=== PATIENT | male | born 1965 | race Two or more races ===

== ENCOUNTER 2018-10-06 07:41 | Inpatient (IN) | payer OTHER ==
[~2018-10-06 07:41] MED LIST: CEFAZOLIN 1 GM INJ; DEXAMETHASONE 4 MG/ML 5 ML INJ; SUCCINYLCHOLINE CHLORIDE 100 MG/5 ML SYG IV
[2018-10-06] MEDS ORDERED: BUPIVACAINE 0.25% (MPF) 30 ML INJ (09:21)
[2018-10-06] MEDS ORDERED: POLYMYXIN/BACITRACIN 1L IRRIG (09:21)
[2018-10-06] MEDS ORDERED: HYDROmorphONE 1 MG/5 ML IV SYRINGE IV ×3 (10:00)
[2018-10-06] MEDS ORDERED: ONDANSETRON 4 MG INJ IV ×2 (10:00→15:00)
[2018-10-06] MEDS ORDERED: MEPERIDINE 25 MG INJ IV (10:00)
[2018-10-06] MEDS ORDERED: FENTAnyl 50 MCG/ML VIAL IV ×2 (10:00)
[2018-10-06] MEDS ORDERED: KETOROLAC 30 MG INJ IV (10:00)
[2018-10-06] MEDS ORDERED: LEVALBUTEROL (NEB) 1.25 MG/0.5 ML AMP HHN (10:00)
[2018-10-06] MEDS ORDERED: DIPHENHYDRAMINE 50 MG INJ IV ×2 (10:00→15:00)
[2018-10-06] MEDS ORDERED: FENTAnyl 50 MCG/ML VIAL ×2 (10:23→12:54)
[2018-10-06] MEDS ORDERED: MIDAZOLAM 1 MG/ML 2 ML INJ (10:24)
[2018-10-06] MEDS ORDERED: ONDANSETRON 4 MG INJ (10:27)
[2018-10-06] MEDS ORDERED: METOCLOPRAMIDE 10 MG INJ (10:29)
[2018-10-06] MEDS ORDERED: ROPIVACAINE 0.5 % 30 ML VIAL (10:31)
[2018-10-06] MEDS: SOD CHLORIDE 0.9% 1,000 ML IV (12:00)
[2018-10-06] MEDS ORDERED: PROPOFOL 20 ML (12:48)
[2018-10-06] MEDS ORDERED: LIDOCAINE 2% (SDV) 5 ML INJ (12:48)
[2018-10-06] MEDS ORDERED: morphine SULFATE/PF (10 MG/10 ML) INJ (12:49)
[2018-10-06] MEDS ORDERED: ROCURONIUM 50 MG INJ ×2 (12:49)
[2018-10-06] MEDS ORDERED: hydrALAzine 20 MG INJ (13:09)
[2018-10-06] MEDS ORDERED: EPHEDrine SULFATE 50 MG/5 ML SYG (14:46)
[2018-10-06] MEDS ORDERED: ZOLPIDEM 5 MG TAB PO (15:00)
[2018-10-06] MEDS ORDERED: NALOXONE (0.4 MG/ML) INJ IV (15:00)
[2018-10-06 15:11] LABS: ADD MAN DIFF? NO
[2018-10-06 15:13] LABS: WHITE BLOOD COUNT 17.5 10^3/ul (4.8-10.8)
[2018-10-06 15:13] LABS: BASOPHIL # 0.1 10^3/ul (0.0-0.1); BASOPHILS % 0.3 % (0.0-2.0); EOSINOPHILS % 0.2 % (0.0-7.0); HEMATOCRIT 36.2 % (42.0-52.0); HEMOGLOBIN 12.3 g/dl (14.0-18.0); LYMPHOCYTES # 2.4 10^3/ul (0.8-2.9); LYMPHOCYTES % 13.9 % (15.0-51.0); MEAN CORPUSCULAR HEMOGLOBIN 32.8 pg (29.0-33.0); MEAN CORPUSCULAR VOLUME 96.5 fl (82.0-101.0); MEAN PLATELET VOLUME 9.8 fl (7.4-10.4); MONOCYTE # 0.7 10^3/ul (0.3-0.9); MONOCYTES % 4.2 % (0.0-11.0); NEUTROPHIL # 14.2 10^3/ul (1.6-7.5); NEUTROPHILS % 81.1 % (39.0-77.0); PLATELET COUNT 334 10^3/UL (140-415); RED BLOOD COUNT 3.75 10^6/ul (4.70-6.10); RED CELL DISTRIBUTION WIDTH 13.4 % (11.5-14.5)
[2018-10-06 15:20] LABS: HOLD TRANSMISSIONS 1
[2018-10-06] MEDS: FENTAnyl 2MCG/ML-ROPIV 0.2% 100 ML BAG EPI ×2 (15:22→22:00)
[2018-10-06] MEDS: LACTATED RINGER'S 1,000 ML IV ×2 (15:23→21:25)
[2018-10-06 15:30] LABS: ALANINE AMINOTRANSFERASE 49 IU/L (13-69); ALBUMIN 3.4 g/dl (3.3-4.9); ALBUMIN/GLOBULIN RATIO 1.47; ALKALINE PHOSPHATASE 84 IU/L (42-121); ANION GAP 8 (5-13); ASPARTATE AMINO TRANSFERASE 25 IU/L (15-46); BILIRUBIN,INDIRECT 0.3 mg/dl (0-1.1); BILIRUBIN,TOTAL 0.3 mg/dl (0.2-1.3); BLOOD UREA NITROGEN 12 mg/dl (7-20); CARBON DIOXIDE 23 mmol/L (21-31); CHLORIDE 107 mmol/L (97-110); CREATININE 0.67 mg/dl (0.61-1.24); Estimated GFR > 60 mL/min (>60); GLUCOSE 141 mg/dl (70-220); POTASSIUM 3.8 mmol/L (3.5-5.1); SODIUM 138 mmol/L (135-144); TOTAL PROTEIN 5.7 g/dl (6.1-8.1)
[2018-10-06 15:36] LABS: CALCIUM 8.3 mg/dl (8.4-10.2)
[2018-10-06] MEDS: AMPICILLIN/SULB 3 GM/NS (PMX) 100 ML IVPB ×2 (15:46→21:25)
[2018-10-07] MEDS: AMPICILLIN/SULB 3 GM/NS (PMX) 100 ML IVPB ×2 (03:12→09:13)
[2018-10-07 05:24] LABS: ADD MAN DIFF? NO
[2018-10-07] MEDS: FENTAnyl 2MCG/ML-ROPIV 0.2% 100 ML BAG EPI ×3 (05:46→21:32)
[2018-10-07 06:14] LABS: ALANINE AMINOTRANSFERASE 39 IU/L (13-69); ALBUMIN 3.3 g/dl (3.3-4.9); ALKALINE PHOSPHATASE 64 IU/L (42-121); ANION GAP 9 (5-13); ASPARTATE AMINO TRANSFERASE 36 IU/L (15-46); BILIRUBIN,INDIRECT 0.6 mg/dl (0-1.1); BILIRUBIN,TOTAL 0.6 mg/dl (0.2-1.3); BLOOD UREA NITROGEN 10 mg/dl (7-20); CALCIUM 8.4 mg/dl (8.4-10.2); CARBON DIOXIDE 25 mmol/L (21-31); CHLORIDE 105 mmol/L (97-110); CREATININE 0.65 mg/dl (0.61-1.24); Estimated GFR > 60 mL/min (>60); GLUCOSE 99 mg/dl (70-220); SODIUM 139 mmol/L (135-144); TOTAL PROTEIN 5.5 g/dl (6.1-8.1)
[2018-10-07 07:02] LABS: WHITE BLOOD COUNT 10.4 10^3/ul (4.8-10.8)
[2018-10-07 07:02] LABS: BASOPHILS % 0.1 % (0.0-2.0); HEMATOCRIT 34.4 % (42.0-52.0); HEMOGLOBIN 11.4 g/dl (14.0-18.0); LYMPHOCYTES # 1.8 10^3/ul (0.8-2.9); LYMPHOCYTES % 17.5 % (15.0-51.0); MEAN CORPUSCULAR HEMOGLOBIN 32.7 pg (29.0-33.0); MEAN CORPUSCULAR HGB CONC 33.1 g/dl (32.0-37.0); MEAN CORPUSCULAR VOLUME 98.6 fl (82.0-101.0); MEAN PLATELET VOLUME 9.9 fl (7.4-10.4); MONOCYTE # 1.2 10^3/ul (0.3-0.9); MONOCYTES % 11.4 % (0.0-11.0); NEUTROPHIL # 7.3 10^3/ul (1.6-7.5); NEUTROPHILS % 70.6 % (39.0-77.0); PLATELET COUNT 277 10^3/UL (140-415); RED BLOOD COUNT 3.49 10^6/ul (4.70-6.10)
[2018-10-07] MEDS: LACTATED RINGER'S 1,000 ML IV ×2 (09:10→20:49)
[2018-10-07] MEDS: CELECOXIB 200 MG CAP PO (09:13)
[2018-10-07] MEDS: HYDROmorphONE 0.5 MG/0.5 ML SYG IV (21:33)
[2018-10-08] MEDS: FENTAnyl 2MCG/ML-ROPIV 0.2% 100 ML BAG EPI ×3 (05:23→20:43)
[2018-10-08] MEDS: LACTATED RINGER'S 1,000 ML IV ×3 (06:46→18:00)
[2018-10-08] MEDS: CELECOXIB 200 MG CAP PO (07:42)
[2018-10-08] MEDS: ACETAMINOPHEN 500 MG TAB PO (07:42)
[2018-10-09] MEDS: LACTATED RINGER'S 1,000 ML IV ×3 (04:10→23:40)
[2018-10-09] MEDS: FENTAnyl 2MCG/ML-ROPIV 0.2% 100 ML BAG EPI ×3 (04:17→18:25)
[2018-10-09] MEDS: CELECOXIB 200 MG CAP PO (10:03)
[2018-10-09] MEDS: ACETAMINOPHEN 500 MG TAB PO (15:43)
[2018-10-09] MEDS: HYDROCODONE/APAP (5/325) TAB PO ×2 (17:09→23:38)
[2018-10-09] MEDS: HYDROmorphONE 0.5 MG/0.5 ML SYG IV (21:13)
[2018-10-10] MEDS: FENTAnyl 2MCG/ML-ROPIV 0.2% 100 ML BAG EPI (01:28)
[2018-10-10] MEDS: HYDROCODONE/APAP (5/325) TAB PO ×3 (03:36→20:38)
[2018-10-10 05:18] LABS: ADD MAN DIFF? NO
[2018-10-10 05:31] LABS: BASOPHILS % 0.5 % (0.0-2.0); EOSINOPHILS # 0.2 10^3/ul (0.0-0.5); EOSINOPHILS % 4.3 % (0.0-7.0); HEMATOCRIT 32.8 % (42.0-52.0); LYMPHOCYTES # 1.5 10^3/ul (0.8-2.9); MEAN CORPUSCULAR HEMOGLOBIN 32.8 pg (29.0-33.0); MEAN CORPUSCULAR HGB CONC 33.5 g/dl (32.0-37.0); MEAN CORPUSCULAR VOLUME 97.9 fl (82.0-101.0); MEAN PLATELET VOLUME 10.7 fl (7.4-10.4); MONOCYTE # 0.7 10^3/ul (0.3-0.9); MONOCYTES % 11.8 % (0.0-11.0); NEUTROPHIL # 3.2 10^3/ul (1.6-7.5); NEUTROPHILS % 57.2 % (39.0-77.0); PLATELET COUNT 270 10^3/UL (140-415); RED BLOOD COUNT 3.35 10^6/ul (4.70-6.10); RED CELL DISTRIBUTION WIDTH 13.2 % (11.5-14.5)
[2018-10-10 05:31] LABS: WHITE BLOOD COUNT 5.6 10^3/ul (4.8-10.8)
[2018-10-10] MEDS: HYDROmorphONE 0.5 MG/0.5 ML SYG IV ×5 (07:39→23:34)
[2018-10-10] MEDS: LACTATED RINGER'S 1,000 ML IV (10:11)
[2018-10-11] MEDS: HYDROCODONE/APAP (5/325) TAB PO (01:37)
[2018-10-11] MEDS: HYDROCODONE/APAP (10/325) TAB PO ×3 (08:17→18:24)
[2018-10-11] MEDS: HYDROmorphONE 0.5 MG/0.5 ML SYG IV ×2 (11:21→20:20)
[2018-10-12] MEDS: HYDROmorphONE 0.5 MG/0.5 ML SYG IV (03:39)
[2018-10-12 05:27] LABS: ADD MAN DIFF? NO
[2018-10-12 05:37] LABS: WHITE BLOOD COUNT 5.7 10^3/ul (4.8-10.8)
[2018-10-12 05:37] LABS: BASOPHILS % 0.5 % (0.0-2.0); EOSINOPHILS # 0.3 10^3/ul (0.0-0.5); EOSINOPHILS % 4.4 % (0.0-7.0); HEMOGLOBIN 12.7 g/dl (14.0-18.0); LYMPHOCYTES # 1.3 10^3/ul (0.8-2.9); LYMPHOCYTES % 22.5 % (15.0-51.0); MEAN CORPUSCULAR HEMOGLOBIN 32.2 pg (29.0-33.0); MEAN CORPUSCULAR HGB CONC 33.4 g/dl (32.0-37.0); MEAN CORPUSCULAR VOLUME 96.2 fl (82.0-101.0); MEAN PLATELET VOLUME 10.4 fl (7.4-10.4); MONOCYTE # 0.9 10^3/ul (0.3-0.9); MONOCYTES % 15.9 % (0.0-11.0); NEUTROPHIL # 3.2 10^3/ul (1.6-7.5); NEUTROPHILS % 56.5 % (39.0-77.0); PLATELET COUNT 391 10^3/UL (140-415); RED BLOOD COUNT 3.95 10^6/ul (4.70-6.10); RED CELL DISTRIBUTION WIDTH 12.9 % (11.5-14.5)
[2018-10-12 06:24] LABS: ANION GAP 11 (5-13); BLOOD UREA NITROGEN 7 mg/dl (7-20); CALCIUM 9.1 mg/dl (8.4-10.2); CARBON DIOXIDE 29 mmol/L (21-31); CHLORIDE 100 mmol/L (97-110); CREATININE 0.71 mg/dl (0.61-1.24); Estimated GFR > 60 mL/min (>60); GLUCOSE 105 mg/dl (70-220); SODIUM 140 mmol/L (135-144)
[2018-10-12] MEDS: HYDROCODONE/APAP (10/325) TAB PO ×2 (09:47→15:08)
== END 2018-10-12 15:32 | disposition home or self-care (01) | DRG 337 ==
LOC: REC 07:41 → MS1 10-07 13:17
PROC: 0WUF0JZ Supplement Abdominal Wall with Synthetic Substitute, Open Approach (ICD-10-PCS; principal; 2018-10-06 10:30)
PROC: 0DN80ZZ Release Small Intestine, Open Approach (ICD-10-PCS; 2018-10-06 10:30)
PROC: 0KXL0ZZ Transfer Left Abdomen Muscle, Open Approach (ICD-10-PCS; 2018-10-06 10:30)
PROC: 0KXK0ZZ Transfer Right Abdomen Muscle, Open Approach (ICD-10-PCS; 2018-10-06 10:30)
DX: K43.0 Incisional hernia with obstruction, without gangrene (principal); G89.18 Other acute postprocedural pain
CPT/HCPCS: 80048; 80053; 85025; 87086